=== PATIENT | female | born 1950 | race Caucasian/White ===

== ENCOUNTER 2016-10-22 02:53 | Emergency (ER) | payer MEDICARE, OTHER ==
[~2016-10-22] VITALS: Ht 152.4 cm; Wt 56.7 kg
[~2016-10-22 02:53] MED LIST: B/P MEDS
--- OUTSIDE RECORDS SUMMARY | 2016-10-22 03:01 | XMS REPORT | Continuity of Care Document ---
Author Author [facility] Organization [facility] Address Unknown Phone Unavailable Allergies Active Description Code Type Severity Reaction Onset Reported/Identified Relationship to Patient Clinical Status Yes No Known Drug Allergies [id number] Drug Allergy Unknown N/ A 06/21/2008 Medications Problems Date Dx Coded Attending Type Code Diagnosis Diagnosed By 04/09/2015 TERRI CALVILLO MD Ot 433.10 04/09/2015 RAJINDER ROJAS, TERRI Castillo Ot 440.9 04/09/2015 RAJINDER ROJAS, TERRI Castillo Ot 433.10 04/09/2015 RAJINDER ROJAS, TERRI Castillo Ot 440.9 05/02/2015 RAJINDER ROJAS, TERRI Castillo Ot 433.10 05/02/2015 RAJINDER ROJAS, TERRI Castillo Ot 440.9 05/05/2015 RAJINDER ROJAS, TERRI Castillo Ot V76.12 05/05/2015 RAJINDER ROJAS, TERRI Castillo Ot 433.10 05/05/2015 RAJINDER ROJAS, TERRI Castillo Ot 440.9 05/05/2015 RAJINDER ROJAS, TERRI Castillo Ot 433.10 05/05/2015 RAJINDER ROJAS, TERRI Castillo Ot 440.9 05/15/2015 RAJINDER ROJAS, TERRI Castillo Ot 433.10 05/15/2015 RAJINDER ROJAS, TERRI Castillo Ot 440.9 05/27/2015 RAJINDER ROJAS, TERRI Castillo Ot V76.12 Procedures Results Encounters ACCT No. Visit Date/Time Discharge Status Pt. Type Provider Facility Loc./Unit Complaint [id number] 05/05/2015 10:20:00 2014 23:59:59 CLS Outpatient TERRI CALVILLO MD [facility] RAD [id number] 04/07/2015 09:06:00 2014 23:59:59 CLS Outpatient TERRI CALVILLO MD [facility] RAD [id number] 04/29/2014 10:26:00 2013 23:59:59 CLS Outpatient TERRI CALVILLO MD [facility] RAD [id number] 04/01/2014 13:16:00 2013 23:59:59 CLS Outpatient [id number] 02/12/2013 14:28:00 2012 23:59:59 CLS Outpatient
[2016-10-22] MEDS ORDERED: ATOR10TA66 PO (03:44)
[2016-10-22] MEDS ORDERED: LOSA1TAB70 PO (03:44)
[2016-10-22] MEDS ORDERED: ASPI-586 PO (03:44)
[2016-10-22] MEDS ORDERED: methylPREDNISolone 125 MG (Solu-MEDROL) VIAL IM ONE (04:15)
[2016-10-22] MEDS ORDERED: diphenhydrAMINE 50 MG/ML INJ (BENADRYL) IM ONE (04:15)
[2016-10-22] MEDS ORDERED: HYDR-700 PO (04:27)
[2016-10-22] MEDS ORDERED: METH4TAB PO (04:27)
[2016-10-22] MEDS ORDERED: MOME15CR17 TP (04:27)
--- NOTE | 2016-10-22 04:27 | ED Integumentary General ---
General Chief Complaint: Allergic Reaction Stated Complaint: ALLERGIC RXN,FEVER Nursing Triage Note: RASH TO BILATERAL HANDS/ARMS X1 WEEK, SEEN BY PCP 10/21/16 FOR SAME RECIEVED "SHOT" WITHOUT IMPROVEMENT. Source: patient, spouse History of Present Illness Time seen by provider: 03:50 Initial Comments PT C/O ITCHY RASH TO DORSUM OF BOTH HANDS AND FOREARMS SINCE Tuesday10/18/16 NO NEW PRODUCTS, MEDICATIONS OR KNOWN EXPOSURES NO HISTORY OF SIMILAR SAW DR. CALVILLO YESTERDAY AND GOT A "SHOT", BUT STATES SHE IS NOT ANY BETTER NO SWELLING ANYWHERE NO DIFFICULTY BREATHING TONIGHT SHE DID OATMEAL SOAKS AND THAT HELPED ALOT PCP: DR. CALVILLO Allergies and Home Medications Allergies Coded Allergies: No Known Drug Allergies (Verified Allergy, Unknown, 06/21/08) Home Medications (Reported) Aspirin 81 Mg Tablet.dr 81 MG PO UD (Reported) Atorvastatin Calcium 10 Mg Tablet #30 1 TAB PO UD (Reported) Hydroxyzine HCl 25 Mg Tablet #20 25-50 MG PO Q6H Prescribed by: CHANA WILLAMS on 10/22/16426 Losartan/Hydrochlorothiazide 1 Each Tablet #90 1 TAB PO UD (Reported) Methylprednisolone 4 Mg Tab.ds.pk #1 4 MG PO UD Prescribed by: CHANA WILLAMS on 10/22/16426 Mometasone Furoate 15 Gm Cream..g. #1 0 TP TID Prescribed by: CHANA WILLAMS on 10/22/16426 Constitutional: no symptoms reported EENTM: no symptoms reported Respiratory: no symptoms reported Cardiovascular: no symptoms reported Gastrointestinal: no symptoms reported Genitourinary: no symptoms reported Musculoskeletal: no symptoms reported Skin: see HPI Psychiatric/Neurological: Anxiety Endocrine: No Symptoms Reported Hematologic/Lymphatic: No Symptoms Reported Past Ieaoghi-Spopmx-Vtlnmv Hx Patient Social History Alcohol Use: Denies Use Recreational Drug Use: No Smoking Status: Never a Smoker 2nd Hand Smoke Exposure: No Recent Foreign Travel: No Contact w/Someone Who Travel: No Recent Infectious Disease Expo: No Recent Hopitalizations: No Immunizations Up To Date Tetanus Booster (TDap): Unknown Seasonal Allergies Seasonal Allergies: No Surgeries HX Surgeries: Yes Surgeries: Appendectomy, Section Respiratory Hx Respiratory Disorders: No Cardiovascular Hx Cardiac Disorders: Yes Cardiac Disorders: High Cholesterol, Hypertension Neurological Hx Neurological Disorders: No Reproductive System : No 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 Genitourinary Hx Genitourinary Disorders: No Gastrointestinal Hx Gastrointestinal Disorders: No Musculoskeletal Hx Musculoskeletal Disorders: No Endocrine Hx Endocrine Disorders: No HEENT HX ENT Disorders: No Cancer Hx Cancer: No Psychosocial Hx Psychiatric Problems: No Integumentary HX Skin/Integumentary Disorder: No Blood Transfusions Hx Blood Disorders: No Physical Exam Vital Signs Vital Sign - Last 12Hours 10/22/16 03:44 Temp 98.7 Pulse 89 Resp 18 B/P 171/114 Pulse Ox 97 O2 Delivery Room Air Capillary Refill : Less Than 3 Seconds General Appearance: WD/WN no apparent distress other (PT VERY ANXIOUS) Cardiovascular: regular rate, rhythm Respiratory: normal breath sounds no respiratory distress no accessory muscle use Extremities: normal capillary refillNo swelling 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 ) Progress/Results/Core Measures Results/Orders My Orders Orders-CHANA WILLAMS DO Methylprednisolone Sod Succ (Solu-Medrol (10/22/16 04:15) Diphenhydramine Injection (Benadryl Inje (10/22/16 04:15) Vital Signs/I&O Vital Sign - Last 12Hours 10/22/16 10/22/16 03:44 04:48 Temp 98.7 98.7 Pulse 89 89 Resp 18 18 B/P 171/114 Pulse Ox 97 97 O2 Delivery Room Air Blood Pressure Mean: 133 Departure Impression Impression: Primary Impression: Contact dermatitis Disposition: 01 HOME, SELF-CARE Condition: Stable Departure-Patient Inst. Referrals: TERRI CALVILLO MD (PCP/Family) Primary Care Physician Patient Instructions: Contact Dermatitis (DC) Add. Discharge Instructions: LOTS OF CLEAR LIQUIDS FOLLOW UP WITH DR. CALVILLO ON TUESDAY IF NO BETTER All discharge instructions reviewed with patient and/or family. Voiced understanding. Scripts Mometasone Furoate (Elocon)15 Gm Cream..g. Tp Tid #1 Tube Prov:CHANA WILLAMS DO 10/22/16 Hydroxyzine HCl 25 Mg [id number] Mg PO Q6H Itching #20 TAB Prov:CHANA WILLAMS DO 10/22/16 Methylprednisolone (Medrol)4 Mg Tab.ds.pk4 Mg PO UD #1 PKG Prov:CHANA WILLAMS DO 10/22/16 CHANA WILLAMS DO Oct 22, 2016 04:27
[2016-10-22 04:48] VITALS: BP 171/114
== END 2016-10-22 04:46 | disposition home or self-care (01) ==
LOC: EDUNIT# 02:53 → ER 02:56
DX: L25.9 Unspecified contact dermatitis, unspecified cause (principal); I11.0 Hypertensive heart disease with heart failure; Z79.82 Long term (current) use of aspirin; Z79.899 Other long term (current) drug therapy
CPT/HCPCS: 96372; 99285

== ENCOUNTER → 2016-11-02 | Outpatient (CLI) | payer MEDICARE, OTHER ==
[~2016-11-02] MED LIST changes: +ASPI-586 PO; +ATOR10TA66 PO; +HYDR-700 PO; +LOSA1TAB70 PO; +METH4TAB PO; +MOME15CR17 TP
--- OUTSIDE RECORDS SUMMARY | 2016-11-02 16:10 | XMS REPORT | Continuity of Care Document ---
Author Author [facility] Organization [facility] Address Unknown Phone Unavailable Allergies Active Description Code Type Severity Reaction Onset Reported/Identified Relationship to Patient Clinical Status Yes No Known Drug Allergies [id number] Drug Allergy Unknown N/ A 06/21/2008 Medications Problems Date Dx Coded Attending Type Code Diagnosis Diagnosed By 04/09/2015 TERRI CALVILLO MD Ot 433.10 04/09/2015 RAJINDER ROJAS, TERRI Castillo Ot 440.9 04/09/2015 RAJINDER ROJAS, ETRRI Castillo Ot 433.10 04/09/2015 RAJINDER ROJAS, TERRI [...] 05/27/2015 RAJINDER ROJAS, TERRI Castillo Ot V76.12 10/22/2016 TERRI CALVILLO MD Ot V76.12 OT SCREEN MAMMO-MALIGN NEOPLASM OF [place] 10/22/2016 TERRI CALVILLO MD Ot 433.10 CAROTID ARTERY OCCLUSION W O CEREBRAL IN 10/22/2016 TERRI CALVILLO MD Ot 440.9 ATHEROSCLEROSIS NOS 10/22/2016 TERRI CALVILLO MD Ot V76.12 OTH SCREEN MAMMO-MALIGN NEOPLASM OF [place] 10/25/2016 VIKY WILLAMS DOA K Ot I11.0 HYPERTENSIVE HEART DISEASE WITH HEART FA 10/25/2016 IMER GREEN CHANA K Ot L25.9 UNSPECIFIED CONTACT DERMATITIS, UNSPECIF 10/25/2016 VIKY WILLAMS DOA K Ot R21 RASH AND OTHER NONSPECIFIC SKIN ERUPTION 10/25/2016 CHANA WILLAMS DO Ot Z79.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 Visit Date/Time Discharge Status Pt. Type Provider Facility Loc./Unit Complaint [id number] 10/22/2016 02:56:00 2016 04:46:00 DIS Outpatient CHANA WILLAMS DO [facility] ER ALLERGIC RXN,FEVER [id number] 05/05/2015 10:20:00 2014 23:59:59 CLS Outpatient TERRI CALVILLO MD [facility] RAD SCREENING [id number] 04/07/2015 09:06:00 2014 23:59:59 CLS Outpatient TERRI CALVILLO MD [facility] RAD CAROTID EXCLUSIVE DISEASE [id number] 04/29/2014 10:26:00 2013 23:59:59 CLS Outpatient TERRI CALVILLO MD [facility] RAD SCREENING [id number] 04/01/2014 13:16:00 2013 23:59:59 CLS Outpatient [id number] 02/12/2013 14:28:00 2012 23:59:59 CLS Outpatient
--- NOTE | 2016-11-04 08:11 | Diagnostic Imaging Report ---
Bilateral screening mammogram The current study was also evaluated with a Computer Aided Detection (CAD) system. Indication: Screening. No current complaints stated on the questionnaire. COMPARISON: 05/05/15 FINDINGS: The breasts are composed of heterogeneously dense parenchyma which may decrease mammographic sensitivity. There is a 1 cm asymmetry seen in the central aspect of the left MLO view which was questionably present on prior exams but appears more prominent and may relate to summation artifact of parenchyma. The right breast demonstrate no definite change. IMPRESSION: 1 cm asymmetry along the central aspect of the left MLO view is seen, questionably present but less prominent on the prior exams. This still may relate to a summation artifact of parenchyma. Focal compression views and ultrasound evaluation is recommended. BI-RADS 0. ACR BI-RADS Category 0: Incomplete. (Needs additional imaging evaluation). Result letter will be mailed to the patient. Note: At least 10% of breast cancer is not imaged by mammography. Dictated by: Dictated on workstation # [id number]
== END ==
LOC: RAD 15:15
PROVIDERS: ATTEND Internal Medicine
DX: Z12.31 Encounter for screening mammogram for malignant neoplasm of breast (principal)
CPT/HCPCS: 77067

== ENCOUNTER → 2016-11-10 | Outpatient (CLI) | payer MEDICARE, OTHER ==
--- OUTSIDE RECORDS SUMMARY | 2016-11-10 07:33 | XMS REPORT | Continuity of Care Document ---
Author Author [facility] Organization [facility] Address Unknown Phone Unavailable Allergies Active Description Code Type Severity Reaction Onset Reported/Identified Relationship to Patient Clinical Status Yes No Known Drug Allergies [id number] Drug Allergy Unknown N/ A 06/21/2008 Medications [...] Ot V76.12 OT SCREEN MAMMO-MALIGN NEOPLASM OF [place] 10/22/2016 TERRI CALVILLO MD Ot 433.10 CAROTID ARTERY OCCLUSION W O CEREBRAL IN 10/22/2016 TERRI CALVILLO MD Ot 440.9 ATHEROSCLEROSIS NOS 10/22/2016 TERRI CALVILLO MD Ot V76.12 OT SCREEN MAMMO-MALIGN NEOPLASM OF [place] 10/22/2016 VIKY WILLAMS DOA Maryann Ot I11.0 HYPERTENSIVE HEART DISEASE WITH HEART FA 10/22/2016 VIKY WILLAMS DOA K Ot L25.9 UNSPECIFIED CONTACT DERMATITIS, UNSPECIF 10/22/2016 VIKY WILLAMS DOA K Ot R21 RASH AND OTHER NONSPECIFIC SKIN ERUPTION 10/22/2016 IMER GREEN CHANA K Ot Z79.82 SHELTER (CURRENT) USE OF ASPIRIN 10/22/2016 IMER DO CHANA K Ot 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 10/25/2016 IMER DO, CHANA K Ot I11.0 HYPERTENSIVE HEART DISEASE WITH HEART FA 10/25/2016 IMER DO CHANA K Ot L25.9 UNSPECIFIED CONTACT DERMATITIS, UNSPECIF 10/25/2016 IMER DO CHANA K Ot R21 RASH AND OTHER NONSPECIFIC SKIN ERUPTION 10/25/2016 IMER DO CHANA K Ot Z79.82 SHELTER (CURRENT) USE OF ASPIRIN 10/25/2016 IMER DO, CHANA K Ot Z79.899 OTHER SHELTER (CURRENT) DRUG THERAPY 10/28/2016 IMER DO CHANA K Ot I11.0 HYPERTENSIVE HEART DISEASE WITH HEART FA 10/28/2016 IMER DO CHANA K Ot L25.9 UNSPECIFIED CONTACT DERMATITIS, UNSPECIF 10/28/2016 IMER DO CHANA K Ot R21 RASH AND OTHER NONSPECIFIC SKIN ERUPTION 10/28/2016 IMER DO CHANA K Ot Z79.82 SHELTER (CURRENT) USE OF ASPIRIN 10/28/2016 IMER DO CHANA K Ot Z79.899 OTHER SHELTER (CURRENT) DRUG THERAPY 11/02/2016 TERRI CALVILLO MD Ot 414.01 CORONARY ATHEROSCLEROSIS OF [place] CORON 11/02/2016 TERRI CALVILLO MD Ot 433.10 CAROTID ARTERY OCCLUSION W O CEREBRAL IN 11/02/2016 TERRI CALVILLO MD Ot 433.30 MULT BILTRAL ARTERY OCCLUSION WO CEREBRA 11/02/2016 TERRI CALVILLO MD Ot V76.12 OTH SCREEN MAMMO-MALIGN NEOPLASM OF [place] 11/02/2016 TERRI CALVILLO MD Ot 433.10 CAROTID ARTERY OCCLUSION W O CEREBRAL IN 11/02/2016 TERRI CALVILLO MD Ot 440.9 ATHEROSCLEROSIS NOS 11/02/2016 TERRI CALVILLO MD Ot V76.12 OTH SCREEN MAMMO-MALIGN NEOPLASM OF [place] 11/03/2016 TERRI CALVILLO MD Ot Z12.31 ENCNTR SCREEN MAMMOGRAM FOR MALIGNANT NE Procedures Results Encounters ACCT No. Visit Date/Time Discharge Status Pt. Type Provider Facility Loc./Unit Complaint [id number] 10/22/2016 02:56:00 2016 04:46:00 DIS Emergency IMER CHANA GREEN [facility] ER ALLERGIC RXN,FEVER [id number] 05/05/2015 10:20:00 2014 23:59:59 CLS Outpatient TERRI CALVILLO MD [facility] RAD SCREENING [id number] 04/07/2015 09:06:00 2014 23:59:59 CLS Outpatient TERRI CALVILLO MD [facility] RAD CAROTID EXCLUSIVE DISEASE [id number] 04/29/2014 10:26:00 2013 23:59:59 CLS Outpatient TERRI CALVILLO MD [facility] RAD SCREENING [id number] 04/01/2014 13:16:00 2013 23:59:59 CLS Outpatient TERRI CALVILLO MD [facility] RAD CAROTID ARTERY DISEASE [id number] 02/12/2013 14:28:00 2012 23:59:59 CLS Outpatient [id number] 11/10/2016 07:29:00 ACT Outpatient KAIDEN EAST APRN [facility] RAD ABNORMAL MAMMO [id number] 11/02/2016 15:15:00 ACT Outpatient TERRI CALVILLO MD [facility] RAD SCREENING
--- NOTE | 2016-11-10 20:06 | Diagnostic Imaging Report ---
INDICATION: Abnormal mammogram. EXAMINATION: Ultrasound of the left breast. FINDINGS: The screening mammogram performed on 11/02/16 noted a 1 cm asymmetry along the central aspect of the left breast. This was only seen on the MLO view. The diagnostic mammogram performed earlier today failed to show any sign of malignancy in this area. On this study, there is no discrete solid or cystic mass identified. There was a single ectatic duct visualized. I suspect that the density seen on the screening mammogram was secondary to superimposition of the heterogeneously dense fibroglandular tissue in the left breast. Even so, it may prove worthwhile to have a short-term (six month) followup mammogram of the left breast for continued evaluation. IMPRESSION: There is no evidence for malignancy. Recommendations as above. ACR BI-RADS Category 3: Probably benign. Result letter will be mailed to the patient. Note: At least 10% of breast cancer is not imaged by mammography. Dictated by: Dictated on workstation # [id number]
--- NOTE | 2016-11-10 20:26 | Diagnostic Imaging Report ---
INDICATION: Abnormal screening mammogram. EXAMINATION: Unilateral diagnostic left mammogram. The current study was also evaluated with a Computer Aided Detection (CAD) system. FINDINGS: The recent screening mammogram performed on 11/02/16 noted a 1 cm asymmetry along the central aspect of the left breast on the MLO view. There was no corresponding abnormality seen on the craniocaudad view. Compression views of this area in the MLO projection fail to show any discrete abnormality. The density in question cannot be identified on the true lateral view either. I suspect that the finding of the screening mammogram was related to superimposition of the heterogeneously dense fibroglandular tissue. Even so, I would recommend that ultrasound be performed for further study. IMPRESSION: There is no evidence for malignancy. Recommendations as above. ACR BI-RADS Category 0: Incomplete. (Needs additional imaging evaluation). Result letter will be mailed to the patient. Note: At least 10% of breast cancer is not imaged by mammography. Dictated by: Dictated on workstation # [id number]
== END ==
LOC: RAD 07:29
PROVIDERS: ATTEND Nurse Practitioner
DX: R92.8 Other abnormal and inconclusive findings on diagnostic imaging of breast (principal)
CPT/HCPCS: 76641

== ENCOUNTER → 2017-05-25 | Outpatient (CLI) | payer MEDICARE, OTHER ==
[~2017-05-25] MED LIST changes: +LOSA1TAB23 PO; -LOSA1TAB70 PO
--- NOTE | 2017-05-25 19:03 | Diagnostic Imaging Report ---
Left breast diagnostic mammogram with tomography. The current study was also evaluated with a Computer Aided Detection (CAD) system. COMPARISON: 11/10/2016. INDICATION: Asymmetry along the central aspect of the left MLO view. FINDINGS: Again seen asymmetry in the central aspect of the left MLO view. It is less prominent compared to the prior exam and is likely summation artifact of parenchyma. Benign-appearing calcification seen. IMPRESSION: Previously seen asymmetry in the central aspect of the left MLO view is less prominent and is favored to be summation artifact of parenchyma. Mammogram follow-up when the patient is due for her bilateral exam in six months is recommended. ACR BI-RADS Category 3: Probably benign findings. Result letter will be mailed to the patient. Note: At least 10% of breast cancer is not imaged by mammography. Dictated by: Dictated on workstation # [id number]
== END ==
LOC: RAD 07:29
PROVIDERS: ATTEND Internal Medicine
DX: N64.89 Other specified disorders of breast (principal)

== ENCOUNTER → 2017-11-16 | Outpatient (CLI) | payer MEDICARE, OTHER ==
--- NOTE | 2017-11-16 19:30 | Diagnostic Imaging Report ---
EXAMINATION: Digital mammogram bilateral diagnostic. INDICATION: Followup mammogram. COMPARISON: This study was compared to the prior exams of 05/25/2017, 11/02/2016, 05/05/2015, 04/29/2014, and 02/12/2013. At this time, there are no current complaints. The current study was also evaluated with a Computer Aided Detection (CAD) system. FINDINGS: The fibroglandular tissue in both breasts is heterogeneously dense. This does limit the sensitivity of this exam. The previous exam of 11/02/2016 noted a 1 cm asymmetry along the central aspect of the left breast. The subsequent diagnostic mammogram and ultrasound exam of 11/10/2016 failed to show any evidence for malignancy in this area. This finding also seems stable on this followup mammogram of 05/25/2017. On this exam, the area in question is again evident and no different. I do suspect it is related to fibroglandular tissue alone. The overall appearance of the breasts has not changed significantly otherwise. There is no primary or secondary sign of malignancy noted. IMPRESSION: 1. There is no evidence for malignancy. 2. The patient should have her annual bilateral screening mammogram in November of 2018 for continued evaluation. ACR BI-RADS Category 1: Negative. Result letter will be mailed to the patient. Note: At least 10% of breast cancer is not imaged by mammography. Dictated by: Dictated on workstation # [id number]
== END ==
LOC: RAD 13:39
PROVIDERS: ATTEND Nurse Practitioner
DX: R92.8 Other abnormal and inconclusive findings on diagnostic imaging of breast (principal)
CPT/HCPCS: 77066

== ENCOUNTER 2018-07-24 23:32 | Emergency (ER) | payer MEDICARE, OTHER ==
[~2018-07-24] VITALS: Ht 152.4 cm; Wt 56.7 kg
--- OUTSIDE RECORDS SUMMARY | 2018-07-24 23:38 | XMS REPORT | Continuity of Care Document ---
Author Author [facility] Organization [facility] Address Unknown Phone Unavailable Allergies Active Description Code Type Severity Reaction Onset Reported/Identified Relationship to Patient Clinical Status Yes No Known Drug Allergies [id number] Drug Allergy Unknown N/A 06/21/2008 Medications There is no data. Problems Date Dx Coded Attending Type Code Diagnosis Diagnosed By 04/09/2015 TERRI CALVILLO MD Ot 433.10 04/09/2015 TERRI CALVILLO MD Ot 440.9 04/09/2015 TERRI CALVILLO MD Ot 433.10 04/09/2015 RAJINDER ROJAS, TERRI Castillo Ot 440.9 05/02/2015 TERRI CALVILLO MD Ot 433.10 05/02/2015 TERRI CALVILLO MD Ot 440.9 05/05/2015 TERRI CALVILLO MD Ot V76.12 05/05/2015 RAJINDER ROJAS, TERRI Castillo Ot 433.10 05/05/2015 RAJINDER ROJAS, TERRI Castillo Ot 440.9 05/05/2015 RAJINDER ROJAS, TERRI Castillo Ot 433.10 05/05/2015 RAJINDER ROJAS, TERRI Castillo Ot 440.9 05/15/2015 TERRI CALVILLO MD Ot 433.10 05/15/2015 RAJINDER ROJAS, TERRI Castillo Ot 440.9 05/27/2015 TERRI CALVILLO MD Ot V76.12 10/22/2016 TERRI CALVILLO MD Ot V76.12 OTH SCREEN MAMMO-MALIGN NEOPLASM OF [place] 10/22/2016 TERRI CALVILLO MD Ot 433.10 CAROTID ARTERY OCCLUSION W O CEREBRAL IN 10/22/2016 TERRI CALVILLO MD Ot 440.9 ATHEROSCLEROSIS NOS 10/22/2016 TERRI CALVILLO MD Ot V76.12 OTH SCREEN MAMMO-MALIGN NEOPLASM OF [place] 10/22/2016 CHANA WILLAMS DO Ot I11.0 HYPERTENSIVE HEART DISEASE WITH HEART FA 10/22/2016 CHANA WILLAMS DO Ot L25.9 UNSPECIFIED CONTACT DERMATITIS, UNSPECIF 10/22/2016 CHANA WILLAMS DO Ot R21 RASH AND OTHER NONSPECIFIC SKIN ERUPTION 10/22/2016 IMER DO CHANA K Ot Z79.82 BANKRUPTCY PARALEGAL (CURRENT) USE OF ASPIRIN 10/22/2016 IMER DO CHANA K Ot Z79.899 OTHER PENITENTIARY (CURRENT) DRUG THERAPY 10/25/2016 IMER DO, CHANA K Ot I11.0 HYPERTENSIVE HEART DISEASE WITH HEART FA 10/25/2016 IMER DO CHANA K Ot L25.9 UNSPECIFIED CONTACT DERMATITIS, UNSPECIF 10/25/2016 IMER DO, CHANA K Ot R21 RASH AND OTHER NONSPECIFIC SKIN ERUPTION 10/25/2016 IMER DO CHANA K Ot Z79.82 BANKRUPTCY PARALEGAL (CURRENT) USE OF ASPIRIN 10/25/2016 IMER DO, CHANA K Ot Z79.899 OTHER PENITENTIARY (CURRENT) DRUG THERAPY 10/28/2016 IMER DO, CHANA K Ot I11.0 HYPERTENSIVE HEART DISEASE WITH HEART FA 10/28/2016 IMER DO CHANA K Ot L25.9 UNSPECIFIED CONTACT DERMATITIS, UNSPECIF 10/28/2016 IMER DO, CHANA K Ot R21 RASH AND OTHER NONSPECIFIC SKIN ERUPTION 10/28/2016 IMER DO CHANA K Ot Z79.82 BANKRUPTCY PARALEGAL (CURRENT) USE OF ASPIRIN 10/28/2016 IMER DO CHANA K Ot Z79.899 OTHER BANKRUPTCY PARALEGAL (CURRENT) DRUG THERAPY 11/02/2016 TERRI CALIVLLO MD Ot 414.01 CORONARY ATHEROSCLEROSIS OF [place] CORON 11/02/2016 TERRI CALVILLO MD Ot 433.10 [...] Z12.31 ENCNTR SCREEN MAMMOGRAM FOR MALIGNANT NE 11/11/2016 KAIDEN EAST APRN Ot R92.8 OTH ABN AND INCONCLUSIVE FINDINGS ON DX 11/23/2016 TERRI CALVILLO MD Ot Z12.31 ENCNTR SCREEN MAMMOGRAM FOR MALIGNANT NE 12/01/2016 CRUZITOPROSPERN George CERTIFIED CYTOTECHNOLOGIST Ot R92.8 OTH ABN AND INCONCLUSIVE FINDINGS ON DX 02/23/2017 CRUZITOPROSPERN George CERTIFIED CYTOTECHNOLOGIST Ot R92.8 OTH ABN AND INCONCLUSIVE FINDINGS ON DX 05/24/2017 TERRI CALVILLO MD Ot R92.8 OTH ABN AND INCONCLUSIVE FINDINGS ON DX 05/25/2017 TERRI CALVILLO MD Ot R92.8 OTH ABN AND INCONCLUSIVE FINDINGS ON DX 05/31/2017 TERRI CALVILLO MD Ot N64.89 OTHER SPECIFIED DISORDERS OF BREAST 06/16/2017 TERRI CALVILLO MD Ot N64.89 OTHER SPECIFIED DISORDERS OF BREAST 07/19/2017 TERRI CALVILLO MD Ot N64.89 OTHER SPECIFIED DISORDERS OF BREAST 11/16/2017 PROSPER EASTN R CERTIFIED CYTOTECHNOLOGIST Ot R92.8 OTH ABN AND INCONCLUSIVE FINDINGS ON DX 11/17/2017 PROSPER EASTN George CERTIFIED CYTOTECHNOLOGIST Ot R92.8 OTH ABN AND INCONCLUSIVE FINDINGS ON DX 12/06/2017 KAIDEN EAST CERTIFIED CYTOTECHNOLOGIST Ot R92.8 OTH ABN AND INCONCLUSIVE FINDINGS ON DX 12/26/2017 KAIDEN EAST CERTIFIED CYTOTECHNOLOGIST Ot R92.8 OTH ABN AND INCONCLUSIVE FINDINGS ON DX Procedures There is no data. Results There is no data. Encounters ACCT No. Visit Date/Time Discharge Status Pt. Type Provider Facility Loc./Unit Complaint [id number] 11/16/2017 13:39:00 11/16/2017 23:59:59 CLS Outpatient KAIDEN EAST APRN [facility] RAD ABNORMAL MAMMO 6 MO FOLLOW UP [id number] 10/19/2017 15:06:00 10/19/2017 23:59:59 CLS Preadmit KAIDEN EAST APRN [facility] RAD SCREENING [id number] 05/25/2017 07:29:00 05/25/2017 23:59:59 CLS Outpatient TERRI CALVILLO MD [facility] RAD 6MO F/U LT BREAST [id number] 11/10/2016 07:29:00 11/10/2016 23:59:59 CLS Outpatient KAIDEN EAST APRN [facility] RAD ABNORMAL MAMMO [id number] 11/02/2016 15:15:00 11/02/2016 23:59:59 CLS Outpatient TERRI CALVILLO MD [facility] RAD SCREENING [id number] 10/22/2016 02:56:00 10/22/2016 04:46:00 DIS Emergency CHANA WILLAMS DO [facility] ER ALLERGIC RXN,FEVER [id number] 05/05/2015 10:20:00 05/05/2015 23:59:59 CLS Outpatient TERRI CALVILLO MD [facility] RAD SCREENING [id number] 04/07/2015 09:06:00 04/07/2015 23:59:59 CLS Outpatient TERRI CALVILLO MD [facility] RAD CAROTID EXCLUSIVE DISEASE [id number] 04/29/2014 10:26:00 04/29/2014 23:59:59 CLS Outpatient TERRI CALVILLO MD [facility] RAD SCREENING [id number] 04/01/2014 13:16:00 04/01/2014 23:59:59 CLS Outpatient TERRI CALVILLO MD [facility] RAD CAROTID ARTERY DISEASE [id number] 02/12/2013 14:28:00 02/12/2013 23:59:59 CLS Outpatient
[2018-07-25] MEDS ORDERED: FAMOTIDINE 20 MG (PEPCID) TABLET PO STA (00:58)
[2018-07-25] MEDS ORDERED: NS IV 1000 ML 1,000 ML IV STA (00:58)
[2018-07-25] MEDS ORDERED: ANTACID SUSP 30 ML UDC (MYLANTA) PO ONE (01:00)
[2018-07-25] MEDS ORDERED: LIDOCAINE 2% VISCOUS 15 ML UDC PO ONE (01:00)
[2018-07-25] MEDS ORDERED: ONDANSETRON 4 MG/2 ML (SDV) Z0FRAN IVP ONE (01:00)
[2018-07-25 01:05] LABS: BASOPHILS % (AUTO) 0 % (0-10); EOSINOPHILS # (AUTO) 0.1 10^3/uL (0.0-0.3); EOSINOPHILS % (AUTO) 2 % (0-10); HEMATOCRIT 39 % (35-52); HEMOGLOBIN 13.1 G/DL (11.5-16.0); LYMPHOCYTES # (AUTO) 1.4 X 10^3 (1.0-4.0); LYMPHOCYTES % (AUTO) 27 % (12-44); MEAN CORPUSCULAR HEMOGLOBIN 30 PG (25-34); MEAN CORPUSCULAR HGB CONC 33 G/DL (32-36); MEAN CORPUSCULAR VOLUME 90 FL (80-99); MEAN PLATELET VOLUME 11.3 FL (7.4-10.4); MONOCYTES # (AUTO) 0.6 X 10^3 (0.0-1.0); MONOCYTES % (AUTO) 11 % (0-12); NEUTROPHILS # (AUTO) 3.2 X 10^3 (1.8-7.8); NEUTROPHILS % (AUTO) 60 % (42-75); PLATELET COUNT 228 10^3/uL (130-400); RED BLOOD COUNT 4.39 10^6/uL (4.35-5.85); RED CELL DISTRIBUTION WIDTH 13.3 % (10.0-14.5); WHITE BLOOD COUNT 5.3 10^3/uL (4.3-11.0)
--- NOTE | 2018-07-25 01:06 | ED Abdominal Pain ---
General Chief Complaint: Abdominal/GI Problems Stated Complaint: ABD PAIN,POSSIBLE ACID REFLUX Nursing Triage Note: PT STARTED AHVING MIDDLE UPPER ABD PAIN YESTERDAY AFTERNOON. PT STATED THAT IT HURTS TO EAT. PT IS ALERT AND ORIENTED AND AMBULATED TO ROOM 10. PT STATED THE PAST 2 DAYS SHE HAS NOT HAD REGUALR BOWEL MOVEMENTS. PT'S STATED HE GAVE HER A WARM ENEMA EARLIER AND DID NOT PRODUCE MUCH. Sepsis Screen: No Definite Risk Source of Information: Patient, Spouse Exam Limitations: No Limitations History of Present Illness Date Seen by Provider: Jul 25, 2018 Time Seen by Provider: 00:49 Initial Comments The patient presents to ER by private conveyance with chief complaint for the past day she's had progressively worsening abdominal pain the midepigastric region with some nausea without vomiting. She's had constipation which is unusual for her. She says usually she is regular every day. She took some Zantac as well as some Mylanta earlier in the day which helped some but the pain continued amount. She thought maybe his condition was constipated so she tried to have a bowel movement you some laxatives as well as a warm water enema with only minimal relief and minimal stool. She has had 2 C-sections and her appendix out in the past. She's had no trauma to her abdomen. She's having no fevers or chills. Allergies and Home Medications Allergies Coded Allergies: No Known Drug Allergies (Verified Allergy, Unknown, 06/21/08) Home Medications Aspirin 81 Mg Tablet.dr, 81 MG PO UD, (Reported) Atorvastatin Calcium 10 Mg Tablet, 1 TAB PO UD, (Reported) Hydroxyzine HCl 25 Mg Tablet, 25-50 MG PO Q6H Prescribed by: CHANA WILLAMS on 10/22/16426 Losartan/Hydrochlorothiazide 1 Each Tablet, 1 TAB PO UD, (Reported) Methylprednisolone 4 Mg Tab.ds.pk, 4 MG PO UD Prescribed by: CHANA WILLAMS on 10/22/16426 Mometasone Furoate 15 Gm Cream..g., 0 TP TID Prescribed by: CHANA WILLAMS on 10/22/16426 Patient Home Medication List Home Medication List Reviewed: Yes Review of Systems Review of Systems Constitutional: No chills, No fever, No malaise EENTM: No Blurred Vision, No Double Vision Respiratory: Denies Cough, Denies Shortness of Air Cardiovascular: Denies Chest Pain, Denies Edema Gastrointestinal: See HPI; Denies Abdomen Distended; Abdominal Pain, Constipated; Denies Diarrhea; Nausea; Denies Poor Appetite, Denies Poor Fluid Intake, Denies Vomiting Genitourinary: Denies Burning, Denies Discharge Musculoskeletal: No back pain, No joint pain Past Bazkzvv-Muzzbz-Kzyuao Hx Patient Social History Alcohol Use: Denies Use Recreational Drug Use: No Smoking Status: Never a Smoker 2nd Hand Smoke Exposure: No Recent Foreign Travel: No Contact w/Someone Who Travel: No Recent Infectious Disease Expo: No Recent Hopitalizations: No Physical Abuse: No Sexual Abuse: No Mistreated: No Fear: No Immunizations Up To Date Tetanus Booster (TDap): Unknown Seasonal Allergies Seasonal Allergies: No Past Medical History Surgeries: Yes (C-SECTIONS X2) Appendectomy, Section Respiratory: No Cardiac: Yes High Cholesterol, Hypertension Neurological: No 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 oz. 56.987814od; BMI Method:Stated General Appearance: WD/WN, mild distress HEENT: PERRL/EOMI, pharynx normal Neck: non-tender, full range of motion Respiratory: chest non-tender, lungs clear, normal breath sounds, no respiratory distress, no accessory muscle use Cardiovascular: normal peripheral pulses, regular rate, rhythm Peripheral Pulses: 2+ Radial Pulses (R), 2+ Radial Pulses (L) Gastrointestinal: normal bowel sounds, soft, tenderness (midepigastric without Santoro sign), other (no mesenteric signs) Neurologic/Psychiatric: alert, normal mood/affect, oriented x 3 Skin: normal color, warm/dry Progress/Results/Core Measures Results/Orders Lab Results Laboratory Tests Test 07/25/18 00:02 07/25/18 00:46 Range/Units White Blood Count 5.3 4.3-11.0 10^3/uL Red Blood Count 4.39 4.35-5.85 10^6/uL Hemoglobin 13.1 11.5-16.0 G/DL Hematocrit 39 35-52 % Mean Corpuscular Volume 90 80-99 FL Mean Corpuscular Hemoglobin 30 25-34 PG Mean Corpuscular Hemoglobin Concent 33 32-36 G/DL Red Cell Distribution Width 13.3 10.0-14.5 % Platelet Count 228 130-400 10^3/uL Mean Platelet Volume 11.3 H 7.4-10.4 FL Neutrophils (%) (Auto) 60 42-75 % Lymphocytes (%) (Auto) 27 12-44 % Monocytes (%) (Auto) 11 0-12 % Eosinophils (%) (Auto) 2 0-10 % Basophils (%) (Auto) 0 0-10 % Neutrophils # (Auto) 3.2 1.8-7.8 X 10^3 Lymphocytes # (Auto) 1.4 1.0-4.0 X 10^3 Monocytes # (Auto) 0.6 0.0-1.0 X 10^3 Eosinophils # (Auto) 0.1 0.0-0.3 10^3/uL Basophils # (Auto) 0.0 0.0-0.1 10^3/uL Sodium Level 137 135-145 MMOL/L Potassium Level 3.6 3.6-5.0 MMOL/L Chloride Level 98 98-107 MMOL/L Carbon Dioxide Level 28 21-32 MMOL/L Anion Gap 11 5-14 MMOL/L Blood Urea Nitrogen 21 H 7-18 MG/DL Creatinine 0.74 0.60-1.30 MG/DL Estimat Glomerular Filtration Rate > 60 BUN/Creatinine Ratio 28 Glucose Level 145 H 70-105 MG/DL Calcium Level 9.6 8.5-10.1 MG/DL Corrected Calcium 9.4 8.5-10.1 MG/DL Total Bilirubin 0.5 0.1-1.0 MG/DL Aspartate Amino Transf (AST/SGOT) 20 5-34 U/L Alanine Aminotransferase (ALT/SGPT) 17 0-55 U/L Alkaline Phosphatase 77 40-136 U/L Total Protein 7.4 6.4-8.2 GM/DL Albumin 4.2 3.2-4.5 GM/DL Lipase 28 8-78 U/L Urine Color YELLOW Urine Clarity CLEAR Urine pH 8 5-9 Urine Specific Og[place]by 1.015 L 1.016-1.022 Urine Protein NEGATIVE NEGATIVE Urine Glucose (UA) NEGATIVE NEGATIVE Urine Ketones NEGATIVE NEGATIVE Urine Nitrite NEGATIVE NEGATIVE Urine Bilirubin NEGATIVE NEGATIVE Urine Urobilinogen NORMAL NORMAL MG/DL Urine Leukocyte Esterase 1+ H NEGATIVE Urine RBC (Auto) NEGATIVE NEGATIVE Urine RBC NONE /HPF Urine WBC NONE /HPF Urine Squamous Epithelial Cells 0-2 /HPF Urine Crystals NONE /LPF Urine Bacteria NEGATIVE /HPF Urine Casts NONE /LPF Urine Mucus NEGATIVE /LPF Urine Culture Indicated NO My Orders Orders - NANDO ROBLERO Ct Abdomen/Pelvis W (07/25/18 00:58) Cbc With Automated Diff (07/25/18 00:58) Comprehensive Metabolic Panel (07/25/18 00:58) Lipase (07/25/18 00:58) Ua Culture If Indicated (07/25/18 00:58) Ondansetron Injection (Zofran Injectio (07/25/18 01:00) Lidocaine 2% Viscous 15 Ml (Xylocaine Vi (07/25/18 01:00) Famotidine Tablet (Pepcid Tablet) (07/25/18 00:58) Ns Iv 1000 Ml (Sodium Chloride 0.9%) (07/25/18 00:58) Antacid Suspension (Mylanta Suspension (07/25/18 01:00) Saline Lock/Iv-Start (07/25/18 00:58) Medications Given in ED Current Medications Medications Dose Ordered Sig/Rudy Route Start Time Stop Time Status Last Admin Dose Admin Al Hydrox/Mg Hydrox/Simethicone 30 ml ONCE ONCE PO 07/25/18 01:00 07/25/18 01:01 DC 07/25/18 01:09 30 ML Lidocaine HCl 15 ml ONCE ONCE PO 07/25/18 01:00 07/25/18 01:01 DC 07/25/18 01:09 15 ML Ondansetron HCl 4 mg ONCE ONCE IVP 07/25/18 01:00 07/25/18 01:01 DC 07/25/18 01:09 4 MG Vital Signs/I&O 07/25/18 00:22 Temp 97.7 Pulse 81 Resp 14 B/P (MAP) 171/90 (117) Pulse Ox 99 O2 Delivery Room Air Blood Pressure Mean: 117 Progress Progress Note #1: Time: 01:06 Progress Note This is a minimal relief with some Mylanta and Zantac syrup trial a GI cocktail see if that helps us locate her symptoms source. We'll get some labs, CT, IV fluids to flush out the contrast, urinalysis. Think about constipation/ obstipation versus bowel obstruction versus PUD versus gallbladder versus pancreatitis versus other. Progress Note #2: Time: 04:05 Progress Note Reexamination the GI cocktail did help her symptoms significantly. She says she feels hungry. Diagnostic Imaging Diagonstic Imaging: CT Plain Films/CT/US/NM/MRI: abdomen, pelvis (with contrast) Comments No acute intra-abdominal findings. Reviewed: Reviewed by Me Departure Impression Primary Impression: Gastritis Qualified Codes: K29.00 - Acute gastritis without bleeding Disposition: HOME, SELF-CARE Condition: Improved Departure-Patient Inst. Decision time for Depature: 04:11 Referrals: TERRI CALVILLO MD (PCP/Family) Primary Care Physician Patient Instructions: Gastritis (DC) Add. Discharge Instructions: Start taking the Carafate 4 times a day 30 minutes before meals and at bedtime for the next 2 weeks. Take omeprazole one tablet daily for the next 4 weeks. Follow-up with Dr. Calvillo in the next 1-2 weeks to discuss whether endoscopy could be useful. All discharge instructions reviewed with patient and/or family. Voiced understanding. Scripts Omeprazole (Omeprazole) 40 Mg Capsule. 40 MG PO DAILY for 30 Days, #30 CAP 0 Refills Prov: NANDO ROBLERO 07/25/18 Sucralfate (Carafate) 1 Gm Tablet 1 GM PO QIDACHS for 14 Days, #56 TAB 0 Refills Prov: NANDO ORBLERO 07/25/18 Copy Copies To 1: TERRI CALVILLO MD, TITUS J Jul 25, 2018 01:06
[2018-07-25 01:16] LABS: BILIRUBIN,URINE NEGATIVE (NEGATIVE); CLARITY,URINE CLEAR; COLOR,URINE YELLOW; GLUCOSE, URINE (UA) NEGATIVE (NEGATIVE); KETONES,URINE NEGATIVE (NEGATIVE); LEUKOCYTE ESTERASE ,URINE 1+ (NEGATIVE); NITRITE,URINE NEGATIVE (NEGATIVE); PH,URINE 8 (5-9); PROTEIN,URINE NEGATIVE (NEGATIVE); UROBILINOGEN,URINE NORMAL (NORMAL)
[2018-07-25 01:18] LABS: ALANINE AMINOTRANSFERASE 17 U/L (0-55); ALBUMIN 4.2 GM/DL (3.2-4.5); ALKALINE PHOSPHATASE 77 U/L (40-136); BILIRUBIN,TOTAL 0.5 MG/DL (0.1-1.0); BUN/CREATININE RATIO 28; CALCIUM 9.6 MG/DL (8.5-10.1); CARBON DIOXIDE 28 MMOL/L (21-32); CHLORIDE 98 MMOL/L (98-107); CREATININE SERUM 0.74 MG/DL (0.60-1.30); GFR ESTIMATED > 60; GLUCOSE 145 MG/DL (70-105); LIPASE 28 U/L (8-78); POTASSIUM 3.6 MMOL/L (3.6-5.0); SODIUM 137 MMOL/L (135-145); TOTAL PROTEIN 7.4 GM/DL (6.4-8.2)
[2018-07-25 01:29] LABS: BACTERIA,URINE NEGATIVE /HPF; SQUAMOUS EPITHELIAL CELL,UR 0-2 /HPF
[2018-07-25] MEDS ORDERED: OMEP40CA36 PO (04:13)
[2018-07-25] MEDS ORDERED: SUCR1TAB36 PO (04:13)
[2018-07-25 04:26] VITALS: BP 150/69
--- NOTE | 2018-07-25 06:19 | Diagnostic Imaging Report ---
PROCEDURE: CT abdomen and pelvis with contrast. TECHNIQUE: Multiple contiguous axial images were obtained through the abdomen and pelvis after administration of intravenous contrast. INDICATION: Abdominal pain. COMPARISON: None. FINDINGS: Lung bases are clear. The liver, gallbladder, pancreas, spleen, adrenals, kidneys, collecting systems and bladder are unremarkable. Reproductive structures are unremarkable. No evidence of appendicitis. No free intraperitoneal air or fluid. No lymphadenopathy. No evidence of bowel obstruction. Moderate spondylotic changes in the lumbar spine. No acute osseous findings. IMPRESSION: No acute CT findings in the abdomen or pelvis. Dictated by: Dictated on workstation # [id number]
== END 2018-07-25 04:26 | disposition home or self-care (01) ==
LOC: EDUNIT# 23:32 → ER 23:33
DX: K29.70 Gastritis, unspecified, without bleeding (principal); E78.00 Pure hypercholesterolemia, unspecified; I10 Essential (primary) hypertension; Z98.890 Other specified postprocedural states; Z79.82 Long term (current) use of aspirin; Z79.52 Long term (current) use of systemic steroids; Z90.49 Acquired absence of other specified parts of digestive tract
CPT/HCPCS: 36415; 74177; 80053; 81000; 83690; 85025

== ENCOUNTER → 2018-11-17 | Outpatient (CLI) | payer MEDICARE, OTHER ==
[~2018-11-17] MED LIST changes: +OMEP40CA36 PO; +SUCR1TAB36 PO
--- NOTE | 2018-11-17 19:26 | Diagnostic Imaging Report ---
INDICATION: Routine screening. COMPARISON: Prior mammogram from 11/16/2017 and 11/02/2016. EXAMINATION: 2D and 3D bilateral screening mammography was performed with CAD. The current study was also evaluated with a Computer Aided Detection (CAD) system. FINDINGS: Scattered fibroglandular densities are identified, bilaterally. The parenchymal pattern appears stable. No dominant mass or malignant appearing microcalcifications are seen. There are benign calcifications present. The axillae are unremarkable. IMPRESSION: No mammographic features suspicious for malignancy are identified. ACR BI-RADS Category 2: Benign findings. Result letter will be mailed to the patient. Note: At least 10% of breast cancer is not imaged by mammography. Dictated by: Dictated on workstation # [id number]
== END ==
LOC: RAD 09:23
PROVIDERS: ATTEND Nurse Practitioner
DX: Z12.31 Encounter for screening mammogram for malignant neoplasm of breast (principal)
CPT/HCPCS: 77067

== ENCOUNTER 2019-01-22 11:49 | Emergency (ER) | payer MEDICARE, OTHER ==
[~2019-01-22] VITALS: Ht 152.4 cm; Wt 54.4 kg
[2019-01-22 12:22] LABS: BASOPHILS % (AUTO) 0 % (0-10); EOSINOPHILS # (AUTO) 0.1 10^3/uL (0.0-0.3); EOSINOPHILS % (AUTO) 2 % (0-10); HEMATOCRIT 42 % (35-52); HEMOGLOBIN 14.1 G/DL (11.5-16.0); LYMPHOCYTES # (AUTO) 1.8 X 10^3 (1.0-4.0); LYMPHOCYTES % (AUTO) 30 % (12-44); MEAN CORPUSCULAR HEMOGLOBIN 30 PG (25-34); MEAN CORPUSCULAR HGB CONC 34 G/DL (32-36); MEAN CORPUSCULAR VOLUME 88 FL (80-99); MEAN PLATELET VOLUME 10.7 FL (7.4-10.4); MONOCYTES # (AUTO) 0.4 X 10^3 (0.0-1.0); MONOCYTES % (AUTO) 6 % (0-12); NEUTROPHILS # (AUTO) 3.8 X 10^3 (1.8-7.8); NEUTROPHILS % (AUTO) 62 % (42-75); PLATELET COUNT 241 10^3/uL (130-400); RED CELL DISTRIBUTION WIDTH 13.1 % (10.0-14.5); WHITE BLOOD COUNT 6.1 10^3/uL (4.3-11.0)
--- NOTE | 2019-01-22 12:30 | ED GU-Female ---
General Chief Complaint: - Urinary Stated Complaint: WEAKNESS;WARM Nursing Triage Note: PT AMB TO TRIAGE WITH COMPLAINT OF SHAKINESS, INCREASED HEART RATE, FREQUENT URINATION, AND RASH ON CHEEKS. STATES SHE WAS HERE ROUGHLY 6 MONTHS AGO FOR SIMILAR SYMPTOMS, DIAGNOSED WITH [facility]. Nursing Sepsis Screen: No Definite Risk Source: patient Exam Limitations: no limitations History of Present Illness Date Seen by Provider: January 22, 2019 Time Seen by Provider: 12:28 Initial Comments To ER with reports of shakiness and general weakness. This has been going on for about 2-3 days. She's also had a sore throat. She states that this morning while getting ready for work she noticed some sensation of palpitations and flushing. She had some redness to her cheeks but thinks maybe it is related to her makeup because there is no rash anywhere else. She does report urinary frequency, increased hunger and weight loss over the past few weeks. She states that her recently had a heart attack and they've been on a diet so this could account for some of the weight loss. She states she just doesn't feel right. Timing/Duration: week, getting worse Severity/Quality: moderate Location: unknown Activities at Onset: none Prior Genitourinary Problems: none Associated Symptoms: urinary frequency Allergies and Home Medications Allergies Coded Allergies: No Known Drug Allergies (Verified , 01/22/19) Home Medications Aspirin 81 Mg Tablet.dr, 81 MG PO UD, (Reported) Atorvastatin Calcium 10 Mg Tablet, 1 TAB PO UD, (Reported) Hydroxyzine HCl 25 Mg Tablet, 25-50 MG PO Q6H Prescribed by: CHANA WILLAMS on 10/22/16426 Losartan/Hydrochlorothiazide 1 Each Tablet, 1 TAB PO UD, (Reported) Methylprednisolone 4 Mg Tab.ds.pk, 4 MG PO UD Prescribed by: CHANA WILLAMS on 10/22/16426 Mometasone Furoate 15 Gm Cream..g., 0 TP TID Prescribed by: CHANA WILLAMS on 10/22/16426 Omeprazole 40 Mg Capsule.dr, 40 MG PO DAILY Prescribed by: NANDO ROBLERO on 07/25/18412 Sucralfate 1 Gm Tablet, 1 GM PO QIDACHS Prescribed by: NANDO ROBLERO on 07/25/18412 Patient Home Medication List Home Medication List Reviewed: Yes Review of Systems Review of Systems Constitutional: see HPI EENTM: see HPI Respiratory: no symptoms reported Cardiovascular: no symptoms reported Genitourinary: see HPI, frequency Musculoskeletal: no symptoms reported Skin: no symptoms reported Psychiatric/Neurological: No Symptoms Reported Endocrine: No Symptoms Reported Past Lvkxwsi-Qvgrep-Fygpmn Hx Patient Social History Alcohol Use: Denies Use Recreational Drug Use: No Smoking Status: Never a Smoker 2nd Hand Smoke Exposure: No Recent Foreign Travel: No Contact w/Someone Who Travel: No Recent Infectious Disease Expo: No Recent Hopitalizations: No Physical Abuse: No Sexual Abuse: No Mistreated: No Fear: No Immunizations Up To Date Tetanus Booster (TDap): Unknown Seasonal Allergies Seasonal Allergies: No Past Medical History Surgeries: Yes (C-SECTIONS X2) Appendectomy, Section Respiratory: No Cardiac: Yes High Cholesterol, Hypertension Neurological: No 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 0.00oz. 54.868611jf; 0.0 BMI Method:Stated General Appearance: WD/WN, no apparent distress HEENT: PERRL/EOMI, normal ENT inspection; No pharyngeal erythema, No tonsillar exudate Neck: non-tender, full range of motion; No lymphadenopathy (R), No lymphadenopathy (L) Cardiovascular: regular rate, rhythm, no edema Respiratory: normal breath sounds, no respiratory distress, no accessory muscle use Gastrointestinal: normal bowel sounds, non tender, soft Extremities: normal range of motion, non-tender Neurologic/Psychiatric: alert, normal mood/affect, oriented x 3 Skin: normal color, warm/dry Progress/Results/Core Measures Suspected Sepsis Recent Fever Within 48 Hours: No Infection Criteria Present: None New/Unexplained Altered Menta: No Sepsis Screen: No Definite Risk SIRS Temperature:98.2 Pulse: 105 Respiratory Rate: 18 Laboratory Tests 01/22/19 12:15: White Blood Count 6.1 Blood Pressure 176 /72 Mean: 106 Laboratory Tests 01/22/19 12:15: Creatinine 1.03, Platelet Count 241, Total Bilirubin 0.8 Results/Orders Lab Results Laboratory Tests Test 01/22/19 12:15 01/22/19 13:07 Range/Units White Blood Count 6.1 4.3-11.0 10^3/uL Red Blood Count 4.73 4.35-5.85 10^6/uL Hemoglobin 14.1 11.5-16.0 G/DL Hematocrit 42 35-52 % Mean Corpuscular Volume 88 80-99 FL Mean Corpuscular Hemoglobin 30 25-34 PG Mean Corpuscular Hemoglobin Concent 34 32-36 G/DL Red Cell Distribution Width 13.1 10.0-14.5 % Platelet Count 241 130-400 10^3/uL Mean Platelet Volume 10.7 H 7.4-10.4 FL Neutrophils (%) (Auto) 62 42-75 % Lymphocytes (%) (Auto) 30 12-44 % Monocytes (%) (Auto) 6 0-12 % Eosinophils (%) (Auto) 2 0-10 % Basophils (%) (Auto) 0 0-10 % Neutrophils # (Auto) 3.8 1.8-7.8 X 10^3 Lymphocytes # (Auto) 1.8 1.0-4.0 X 10^3 Monocytes # (Auto) 0.4 0.0-1.0 X 10^3 Eosinophils # (Auto) 0.1 0.0-0.3 10^3/uL Basophils # (Auto) 0.0 0.0-0.1 10^3/uL Sodium Level 139 135-145 MMOL/L Potassium Level 3.0 L 3.6-5.0 MMOL/L Chloride Level 102 98-107 MMOL/L Carbon Dioxide Level 23 21-32 MMOL/L Anion Gap 14 5-14 MMOL/L Blood Urea Nitrogen 23 H 7-18 MG/DL Creatinine 1.03 0.60-1.30 MG/DL Estimat Glomerular Filtration Rate 53 BUN/Creatinine Ratio 22 Glucose Level 114 H 70-105 MG/DL Calcium Level 10.0 8.5-10.1 MG/DL Corrected Calcium 8.5-10.1 MG/DL Total Bilirubin 0.8 0.1-1.0 MG/DL Aspartate Amino Transf (AST/SGOT) 24 5-34 U/L Alanine Aminotransferase (ALT/SGPT) 20 0-55 U/L Alkaline Phosphatase 79 40-136 U/L Troponin I < 0.028 <0.028 NG/ML Total Protein 8.1 6.4-8.2 GM/DL Albumin 4.6 H 3.2-4.5 GM/DL Thyroid Stimulating Hormone (TSH) 0.59 0.35-4.94 UIU/ML Free Thyroxine 1.31 0.70-1.48 NG/DL Urine Color YELLOW Urine Clarity CLEAR Urine pH 7 5-9 Urine Specific Ackerman 1.005 L 1.016-1.022 Urine Protein NEGATIVE NEGATIVE Urine Glucose (UA) NEGATIVE NEGATIVE Urine Ketones NEGATIVE NEGATIVE Urine Nitrite NEGATIVE NEGATIVE Urine Bilirubin NEGATIVE NEGATIVE Urine Urobilinogen NORMAL NORMAL MG/DL Urine Leukocyte Esterase NEGATIVE NEGATIVE Urine RBC (Auto) NEGATIVE NEGATIVE Urine RBC RARE /HPF Urine WBC NONE /HPF Urine Squamous Epithelial Cells NONE /HPF Urine Crystals NONE /LPF Urine Bacteria NEGATIVE /HPF Urine Casts NONE /LPF Urine Mucus NEGATIVE /LPF Urine Culture Indicated NO My Orders Orders - ABEL HARDY APRN Cbc With Automated Diff (01/22/19 12:03) Comprehensive Metabolic Panel (01/22/19 12:03) Chest Pa/Lat (2 View) (01/22/19 12:03) Ed Iv/Invasive Line Start (01/22/19 12:03) Thyroid Stimulating Hormone (01/22/19 12:06) Free T4 (Free Thyroxine) (01/22/19 12:06) Ekg Tracing (01/22/19 12:26) Troponin I (01/22/19 12:15) Magnesium (01/22/19 13:30) Potassium Chloride (Tablet) (K Dur Table (01/22/19 13:30) Magnesium Oxide Tablet (Mag Ox Tablet) (01/22/19 13:30) Vital Signs/I&O 01/22/19 01/22/19 11:54 12:10 Temp 98.2 98.2 Pulse 105 105 Resp 18 18 B/P (MAP) 176/72 (106) 176/72 (106) Pulse Ox 100 100 O2 Delivery Room Air Capillary Refill : Less Than 3 Seconds Blood Pressure Mean: 106 Departure Impression Primary Impression: Hypokalemia Disposition: 01 HOME, SELF-CARE Condition: Stable Departure-Patient Inst. Decision time for Depature: 13:37 Referrals: TERRI CALVILLO MD (PCP/Family) Primary Care Physician Patient Instructions: Hypokalemia Add. Discharge Instructions: 1. Return to ER for any concerns 2. Follow-up with your doctor next week 3. All discharge instructions reviewed with patient and/or family. Voiced un derstanding. Scripts Potassium Chloride (K-Tab ER) 20 Meq Tablet.er 40 MEQ PO DAILY, #8 TAB Prov: ABEL HARDY APRN 01/22/19 ABEL HARDY APRN January 22, 2019 12:30
[2019-01-22 12:55] LABS: ALANINE AMINOTRANSFERASE 20 U/L (0-55); ALBUMIN 4.6 GM/DL (3.2-4.5); ALKALINE PHOSPHATASE 79 U/L (40-136); BILIRUBIN,TOTAL 0.8 MG/DL (0.1-1.0); BUN/CREATININE RATIO 22; CARBON DIOXIDE 23 MMOL/L (21-32); CHLORIDE 102 MMOL/L (98-107); CREATININE SERUM 1.03 MG/DL (0.60-1.30); GFR ESTIMATED 53; GLUCOSE 114 MG/DL (70-105); SODIUM 139 MMOL/L (135-145); TOTAL PROTEIN 8.1 GM/DL (6.4-8.2)
[2019-01-22 13:17] LABS: BILIRUBIN,URINE NEGATIVE (NEGATIVE); CLARITY,URINE CLEAR; COLOR,URINE YELLOW; GLUCOSE, URINE (UA) NEGATIVE (NEGATIVE); KETONES,URINE NEGATIVE (NEGATIVE); LEUKOCYTE ESTERASE ,URINE NEGATIVE (NEGATIVE); NITRITE,URINE NEGATIVE (NEGATIVE); PH,URINE 7 (5-9); PROTEIN,URINE NEGATIVE (NEGATIVE); UROBILINOGEN,URINE NORMAL (NORMAL)
[2019-01-22 13:18] LABS: FREE T4 (FREE THYROXINE) 1.31 NG/DL (0.70-1.48)
[2019-01-22 13:23] LABS: BACTERIA,URINE NEGATIVE /HPF; RBC,URINE RARE /HPF
[2019-01-22] MEDS ORDERED: MAGNESIUM OXIDE (MAG-OX)400 MG TAB PO ONE (13:30)
[2019-01-22] MEDS ORDERED: KCL 20 MEQ TAB (K-DUR) PO ONE (13:30)
[2019-01-22] MEDS ORDERED: POTA-53 PO (13:38)
--- NOTE | 2019-01-22 14:18 | Diagnostic Imaging Report ---
INDICATION: Weakness. PA and lateral chest obtained at 01:44 p.m. Heart and mediastinal silhouette are normal in appearance. The lungs are clear. There is no pneumothorax or pleural fluid. IMPRESSION: No acute process in the chest. Dictated by: Dictated on workstation # [id number]
[2019-01-22 14:21] VITALS: BP 126/64
== END 2019-01-22 14:21 | disposition home or self-care (01) ==
LOC: EDUNIT# 11:49 → ER 11:50
DX: E87.6 Hypokalemia (principal); E78.00 Pure hypercholesterolemia, unspecified; I10 Essential (primary) hypertension; Z79.82 Long term (current) use of aspirin; Z82.49 Family history of ischemic heart disease and other diseases of the circulatory system; Z79.52 Long term (current) use of systemic steroids; Z98.890 Other specified postprocedural states; Z90.49 Acquired absence of other specified parts of digestive tract
CPT/HCPCS: 36415; 71046; 80053; 81000; 83735; 84439; 84443; 84484; 85025; 93005

== ENCOUNTER → 2019-07-02 | Outpatient (CLI) | payer MEDICARE, OTHER ==
[~2019-07-02] MED LIST changes: +POTA-53 PO
--- NOTE | 2019-07-02 16:51 | Diagnostic Imaging Report ---
PROCEDURE: US carotid duplex, bilateral. TECHNIQUE: Multiple real-time grayscale images were obtained over the carotid arteries in various projections, bilaterally. Additional spectral analysis and color Doppler duplex images were also obtained. INDICATION: Carotid arterial sclerosis FINDINGS: Comparison is 04/07/2015 Parameters based on the consensus panel Grimm-Scale and Doppler ultrasound criteria published July 2003, Radiology, Volume 229. DOPPLER (peak systolic velocity M/S) Right Left CCA .83 1.06 ICA Proximal 1.07 1.24 ICA Mid 1.24 1.05 ICA Distal 1 .81 RATIO 1.5 1.2 ECA 1.34 1.21 VERT .94 .80 Right carotid circulation: The right common carotid artery is normal in course and caliber. There is moderate calcified plaque formation in the right carotid bifurcation. Based on grayscale images and flow velocity criteria, there are no hemodynamically significant stenoses. Left carotid circulation: The left common carotid artery is normal in course and caliber. There is moderate calcified plaque formation in the left carotid bifurcation. Based on grayscale images and flow velocity criteria, there are no hemodynamically significant stenoses. Flow in the bilateral vertebral arteries is antegrade. IMPRESSION: 1. Mild (<50%) stenosis of the right internal carotid artery. 2. Mild (<50%) stenosis of the left internal carotid artery. Society of Radiologist in Ultrasound Consensus: Normal: ICA PSV is <125 cm/sec and no plaque or intimal thickening is visible sonographically ICA/CCA PSV ratio <2.0 ICA EDV <40 cm/sec Mild (<50% ICA stenosis): ICA PSV is <125 cm/sec and plaque or intimal thickening is visible sonographically ICA/CCA PSV ratio <2.0 ICA EDV <40 cm/sec Moderate (50-69% ICA stenosis) ICA PSV is 125-230 cm/sec and plaque is visible sonographically ICA/CCA PSV ratio of 2.0-4.0 ICA EDV of 40-100 cm/sec Severe (?70% ICA stenosis but less than near occlusion): ICA PSV is >230 cm/sec and visible plaque and luminal narrowing are seen at grimm-scale and color Doppler ultrasound (the higher the Doppler parameters lie above the threshold of 230 cm/sec, the greater the likelihood of severe disease) ICA/CCA PSV ratio >4 ICA EDV >100 cm/sec Near occlusion of the ICA Velocity parameters may not apply, since velocities may be high, low, or undetectable Markedly narrowed lumen at color or power Doppler ultrasound Total occlusion of the ICA: No detectable patent lumen at grimm-scale ultrasound and no flow with spectral, power, and color Doppler ultrasound May be compensatory increased velocity in the contralateral carotid Dictated by: Dictated on workstation # [id number]
== END ==
LOC: RAD 14:50
PROVIDERS: ATTEND Internal Medicine
DX: I65.23 Occlusion and stenosis of bilateral carotid arteries (principal)
CPT/HCPCS: 93880

== ENCOUNTER 2019-11-19 06:01 | Outpatient (CLI) | payer MEDICARE, OTHER ==
[~2019-11-19] VITALS: Ht 152 cm; Wt 54.0 kg
[~2019-11-19 06:01] MED LIST changes: -MOME15CR17 TP; +MOME15CR8 TP; +OMEP40CA27 PO; -OMEP40CA36 PO
[2019-11-19] MEDS ORDERED: ASPI325T32 PO (15:01)
== END 2019-11-19 15:05 | disposition home or self-care (01) ==
LOC: PREOP 06:01
PROVIDERS: ATTEND Surgery
DX: Z01.818 Encounter for other preprocedural examination (principal)

== ENCOUNTER 2020-01-14 10:29 | Day surgery (SDC) | payer MEDICARE, OTHER ==
[2020-01-14] VITALS (9 sets, daily range): BP systolic 21–129; BP diastolic 56–77
[~2020-01-14] VITALS: Ht 157.5 cm; Wt 56.0 kg
[~2020-01-14 10:29] MED LIST changes: +ASPI325T32 PO; +LOSA25TA41 PO
[2020-01-14] MEDS ORDERED: LACTATED RINGERS 1,000 ML IV ONE (10:39)
[2020-01-14] MEDS ORDERED: LACTATED RINGERS 1,000 ML IV STA (10:44)
[2020-01-14] MEDS ORDERED: proPOfol 200 MG/20 ML (DIPRIVAN) VIAL IV ONE (12:19)
[2020-01-14] MEDS ORDERED: MIDAZOLAM 2 MG/2 ML (VERSED) VIAL ONE (12:41)
--- NOTE | 2020-01-14 14:19 | Anesthesia-General Post-Op ---
MAC Patient Condition Mental Status/LOC: Same as Preop Cardiovascular: Satisfactory Nausea/Vomiting: Absent Respiratory: Satisfactory Pain: Controlled Complications: Absent Post Op Complications Complications None Follow Up Care/Instructions Patient Instructions None needed. Anesthesiology Discharge Order Discharge Order Patient is doing well, no complaints, stable vital signs, no apparent adverse anesthesia problems. No complications reported per nursing. RUPERT CAPELLAN CRNA January 14, 2020 14:19
--- NOTE | 2020-01-14 17:42 | Progress Note-Post Operative ---
Post-Operative Progess Note Surgeon (s)/Skiver Counter (s) Surgeon ALVIN DUFFY DO Skiver Counter: na Pre-Operative Diagnosis screening colonoscopy Post-Operative Diagnosis diverticulosis Procedure & Operative Findings Date of Procedure 01/14/20 Procedure Performed/Findings colonoscopy Anesthesia Type per humidifier attendant Estimated Blood Loss Estimated blood loss (mL): none Specimens/Packing Specimens Removed na ALVIN DUFFY DO January 14, 2020 17:42
--- NOTE | 2020-01-14 23:15 | OPERATIVE REPORT ---
DATE OF SERVICE: 01/14/2020 PREOPERATIVE DIAGNOSIS: Screening colonoscopy. POSTOPERATIVE DIAGNOSIS: Diverticulosis. PROCEDURE: Colonoscopy. SURGEON: Alvin Longoria DO ANESTHESIA: Per PAN DUMPER. ESTIMATED BLOOD LOSS: None. COMPLICATIONS: None. INDICATIONS: The patient is a 69-year-old female needing colonoscopy. She understands risks and benefits of procedure and wished to proceed with procedure. Consent was signed in the chart. DESCRIPTION OF PROCEDURE: The patient was taken to the endoscopy suite, placed in left lateral recumbent position. Timeout was performed. Digital rectal exam was performed. There were no palpable polyps, masses or ulcerations. Scope was inserted in the rectum, advanced all the way to cecum with minimal difficulty. Prep was adequate. Scope was then slowly retracted back. There were no polyps, masses or ulcerations within the cecum, ascending, transverse, descending and sigmoid colon. In the sigmoid colon, moderate amount of diverticulosis present. No other pathology noted. Scope once in the rectum was retroflexed noting no other pathology. Scope was returned to its normal position, slowly withdrawn until completely removed. The patient tolerated procedure well without any complications. She was taken to recovery room in stable condition. RECOMMENDATIONS: The patient will need repeat colonoscopy if she has any symptoms. Otherwise, she does not need any further screening. Job ID: [id number] DocumentID: [id number] Dictated Date: 01/14/2020 17:52:46 Emergency Medicine Physician Date: 01/14/2020 23:14:42 Dictated By: ALVIN LONGORIA DO
== END 2020-01-14 14:10 | disposition home or self-care (01) ==
LOC: ENDO 10:29
PROVIDERS: ATTEND Surgery
DX: Z12.11 Encounter for screening for malignant neoplasm of colon (principal); K57.30 Diverticulosis of large intestine without perforation or abscess without bleeding; I10 Essential (primary) hypertension; E78.5 Hyperlipidemia, unspecified; Z90.89 Acquired absence of other organs; Z79.82 Long term (current) use of aspirin; Z79.899 Other long term (current) drug therapy; Z82.49 Family history of ischemic heart disease and other diseases of the circulatory system; Z83.3 Family history of diabetes mellitus

== ENCOUNTER → 2020-04-29 | Outpatient (CLI) | payer MEDICARE, OTHER ==
--- NOTE | 2020-04-29 12:36 | Diagnostic Imaging Report ---
INDICATION: Routine screening. COMPARISON: 11/17/2018 and 11/16/2017. TECHNIQUE: 2D and 3D bilateral screening mammography was performed with CAD. FINDINGS: Scattered fibroglandular densities are identified bilaterally. There are scattered benign calcifications in both breasts. The parenchymal pattern is stable. No mass or malignant appearing microcalcifications are seen. The axillae are unremarkable. IMPRESSION: No mammographic features suspicious for malignancy are identified. ACR BI-RADS Category 2: Benign findings. Result letter will be mailed to the patient. Note: At least 10% of breast cancer is not imaged by mammography. Dictated by: Dictated on workstation # [id number]
== END ==
LOC: RAD 10:24
PROVIDERS: ATTEND Internal Medicine
DX: Z12.31 Encounter for screening mammogram for malignant neoplasm of breast (principal)
CPT/HCPCS: 77063; 77067

== ENCOUNTER → 2021-05-25 | Outpatient (CLI) | payer MEDICARE, OTHER ==
[~2021-05-25] MED LIST changes: -OMEP40CA27 PO; +OMEP40CA6 PO
--- NOTE | 2021-05-25 10:32 | Diagnostic Imaging Report ---
INDICATION: Screening. TECHNIQUE: The current study was also evaluated with a Computer Aided Detection (CAD) system. 3D Tomographic imaging was also performed. COMPARISON: 04/29/2020, 11/17/2018, and 11/16/2017. FINDINGS: The breasts are heterogeneously dense which may obscure small masses. There are a few benign type calcifications. There is, however, no dominant mass, spiculated lesion, or suspicious calcification identified. The skin, nipples, and axillae are unremarkable. IMPRESSION: Benign findings. ACR BI-RADS Category 2: Benign findings. Result letter will be mailed to the patient. Note: At least 10% of breast cancer is not imaged by mammography. Dictated by: Dictated on workstation # [id number]
== END ==
LOC: RAD 08:00
PROVIDERS: ATTEND Internal Medicine
DX: Z12.31 Encounter for screening mammogram for malignant neoplasm of breast (principal)
CPT/HCPCS: 77063; 77067

== ENCOUNTER → 2021-06-15 | Outpatient (CLI) | payer MEDICARE, OTHER ==
--- NOTE | 2021-06-15 14:42 | Diagnostic Imaging Report ---
PROCEDURE: US carotid duplex, bilateral. TECHNIQUE: Multiple real-time grayscale images were obtained over the carotid arteries in various projections, bilaterally. Additional spectral analysis and color Doppler duplex images were also obtained. INDICATION: Known atherosclerotic disease with carotid stenosis. Comparison with previous carotid Doppler study from 07/02/2019. FINDINGS: There is a hard and soft atherosclerotic plaquing scattered within the carotid bulbs and extending into the internal and external carotid arteries bilaterally. Color Doppler imaging shows antegrade flow throughout the carotid and vertebral arteries. Waveforms and peak velocities are normal. Carotid ratios are normal. IMPRESSION: Atherosclerotic plaquing again demonstrated without significant overall change in appearance since 2019. This is again considered mild with less than 50% stenosis within the internal carotid arteries. Parameters based on the consensus panel Grimm-Scale and Doppler ultrasound criteria published July 2003, Radiology, Volume 229. DOPPLER (peak systolic velocity M/S Right Left CCA .72 .92 ICA Proximal 1.16 1.02 ICA Mid .83 .83 ICA Distal .75 .72 RATIO 1.18 .83 ECA .84 .86 VERT .53 .58 Dictated by: Dictated on workstation # [id number]
== END ==
LOC: RAD 12:30
PROVIDERS: ATTEND Nurse Practitioner Family
DX: I65.23 Occlusion and stenosis of bilateral carotid arteries (principal); I25.10 Atherosclerotic heart disease of native coronary artery without angina pectoris
CPT/HCPCS: 93880

== ENCOUNTER 2021-07-25 08:30 | Emergency (ER) | payer MEDICARE, OTHER ==
[~2021-07-25] VITALS: Ht 152 cm; Wt 54.0 kg
[2021-07-25] MEDS ORDERED: LACTATED RINGERS 1,000 ML IV SCH (09:00)
--- NOTE | 2021-07-25 09:01 | ED General ---
General Chief Complaint: Dizziness/Syncope Stated Complaint: DIZZINESS,WEAKNESS Nursing Triage Note: ARRIVED VIA AMB TO ROOM 07 WITH COMPLAINTS OF DIZZINESS ET NAUSEA X2 DAYS. Source of Information: Patient Exam Limitations: No Limitations History of Present Illness Date Seen by Provider: Jul 25, 2021 Time Seen by Provider: 08:33 Initial Comments 71-year-old female with past medical history of hypertension and hyperlipidemia coming in due to general weakness as well as dizziness. She said this started yesterday morning when she woke up. She says she feels lightheaded when she is asked what she means by dizziness. She says sometimes she feels like the room is spinning particularly when she is moving, but this is very intermittent, and is not occurring right now. She says despite this she has been able to walk a round has not been falling over. Denies any trauma such as hitting her head. After this occurred yesterday she is still was able to go to work and complete all of her work. She felt it again this morning and that is why she presented here. She denies any headache, vision changes, voice changes, hearing changes, neck pain, chest pain, shortness of breath, cough, fever, focal weakness or numbness, bowel or bladder issues, or any other concerns. She says she felt similar a couple years ago when she came here and her potassium was low. She does note that she has been losing weight and has not been trying, but has had slightly less of an appetite recently. Allergies and Home Medications Allergies Coded Allergies: No Known Drug Allergies (Unverified , 01/08/20) Patient Home Medication List Home Medication List Reviewed: Yes Aspirin (Aspirin EC) 325 Mg Tablet.dr 325 MG PO DAILY, (Reported) Entered as Reported by: FOUZIA VANEGAS on 11/19/19 1501 Atorvastatin Calcium (Atorvastatin Calcium) 10 Mg Tablet, 1 TAB PO UD, (Reported) Entered as Reported by: XOCHITL MARROQUIN on 10/22/16 0344 Losartan Potassium (Losartan Potassium) 25 Mg Tablet, 25 MG PO DAILY, (Reported) Entered as Reported by: FOUZIA VANEGAS on 01/08/20 1238 Review of Systems Review of Systems Constitutional: No chills, No fever EENTM: No blurred vision Respiratory: No cough, No short of breath Cardiovascular: No chest pain, No edema, No palpitations, No syncope Gastrointestinal: No abdominal pain, No diarrhea, No nausea, No vomiting Genitourinary: No discharge, No dysuria, No frequency, No hematuria, No hesitancy Musculoskeletal: No back pain, No joint pain Skin: no symptoms reported Psychiatric/Neurological: Denies Headache, Denies Numbness, Denies Paresthesia, Denies Seizure Hematologic/Lymphatic: No Symptoms Reported Immunological/Allergic: no symptoms reported All Other Systems Reviewed Negative Unless Noted: Yes Past Cjteary-Wncvph-Eynzzz Hx Patient Social History Tobacco Use?: No Substance use?: No Alcohol Use?: No Immunizations Up To Date Tetanus Booster (TDap): Unknown PED Vaccines UTD: No Second COVID19 Vaccination Gaston: 11/23 COVID19 Vaccine Pin Pusher: JUSTIN Seasonal Allergies Seasonal Allergies: No Past Medical History Surgeries: Yes (C-SECTIONS X2) Appendectomy, Section Respiratory: No Cardiac: Yes High Cholesterol, Hypertension Neurological: No 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 0.00oz. 54.321681bd; 23.00 BMI Method:Stated General Appearance: No Apparent Distress, WD/WN Eyes: Bilateral Eye Normal Inspection, Bilateral Eye PERRL, Bilateral Eye EOMI, Bilateral Eye Other (Normal visual haskins) HEENT: PERRL/EOMI, TMs Normal, Normal ENT Inspection, Pharynx Normal Neck: Full Range of Motion, Normal Inspection, Non Tender, Supple Respiratory: Chest Non Tender, Lungs Clear, Normal Breath Sounds, No Accessory Muscle Use, No Respiratory Distress Cardiovascular: Regular Rate, Rhythm, No Edema, Normal Peripheral Pulses Gastrointestinal: Normal Bowel Sounds, Non Tender, Soft; No Distended, No Guarding Back: Normal Inspection, No CVA Tenderness, No Vertebral Tenderness Extremity: Normal Capillary Refill, Normal Inspection, Normal Range of Motion, Non Tender, No Calf Tenderness, No Pedal Edema Neurologic/Psychiatric: Alert, Oriented x3, No Motor/Sensory Deficits, Normal Mood/Affect, room service runner II-XII Norm as Tested, Other (Normal inqfcw-pc-utqj, normal qrex-iz-mqos, normal tandem gait) Skin: Normal Color, Warm/Dry Lymphatic: No Adenopathy Progress/Results/Core Measures Suspected Sepsis SIRS Temperature: Pulse: 86 Respiratory Rate: 16 Laboratory Tests 07/25/21 08:44: White Blood Count 5.0 Blood Pressure 176 /81 Mean: 112 Laboratory Tests 07/25/21 08:44: Creatinine 0.75, INR Comment 1.0, Platelet Count 245, Total Bilirubin 0.8 Results/Orders Lab Results Laboratory Tests Test 07/25/21 08:44 07/25/21 09:50 Range/Units White Blood Count 5.0 4.3-11.0 10^3/uL Red Blood Count 4.53 3.80-5.11 10^6/uL Hemoglobin 13.7 11.5-16.0 g/dL Hematocrit 40 35-52 % Mean Corpuscular Volume 89 80-99 fL Mean Corpuscular Hemoglobin 30 25-34 pg Mean Corpuscular Hemoglobin Concent 34 32-36 g/dL Red Cell Distribution Width 12.5 10.0-14.5 % Platelet Count 245 130-400 10^3/uL Mean Platelet Volume 10.6 9.0-12.2 fL Immature Granulocyte % (Auto) 0 % Neutrophils (%) (Auto) 61 42-75 % Lymphocytes (%) (Auto) 27 12-44 % Monocytes (%) (Auto) 8 0-12 % Eosinophils (%) (Auto) 3 0-10 % Basophils (%) (Auto) 0 0-10 % Neutrophils # (Auto) 3.1 1.8-7.8 10^3/uL Lymphocytes # (Auto) 1.4 1.0-4.0 10^3/uL Monocytes # (Auto) 0.4 0.0-1.0 10^3/uL Eosinophils # (Auto) 0.2 0.0-0.3 10^3/uL Basophils # (Auto) 0.0 0.0-0.1 10^3/uL Immature Granulocyte # (Auto) 0.0 0.0-0.1 10^3/uL Prothrombin Time 13.2 12.2-14.7 SEC INR Comment 1.0 0.8-1.4 Activated Partial Thromboplast Time 33 24-35 SEC Sodium Level 137 135-145 MMOL/L Potassium Level 3.4 L 3.6-5.0 MMOL/L Chloride Level 102 98-107 MMOL/L Carbon Dioxide Level 25 21-32 MMOL/L Anion Gap 10 5-14 MMOL/L Blood Urea Nitrogen 25 H 7-18 MG/DL Creatinine 0.75 0.60-1.30 MG/DL Estimat Glomerular Filtration Rate 76 BUN/Creatinine Ratio 33 Glucose Level 102 70-105 MG/DL Calcium Level 9.5 8.5-10.1 MG/DL Corrected Calcium 9.3 8.5-10.1 MG/DL Magnesium Level 2.2 1.6-2.4 MG/DL Total Bilirubin 0.8 0.1-1.0 MG/DL Aspartate Amino Transf (AST/SGOT) 22 5-34 U/L Alanine Aminotransferase (ALT/SGPT) 12 0-55 U/L Alkaline Phosphatase 76 40-136 U/L Troponin I < 0.028 <0.028 NG/ML B-Type Natriuretic Peptide 31.5 <100.0 PG/ML Total Protein 8.2 6.4-8.2 GM/DL Albumin 4.3 3.2-4.5 GM/DL Urine Color YELLOW Urine Clarity CLEAR Urine pH 6.0 5-9 Urine Specific [place] >=1.030 1.016-1.022 Urine Protein NEGATIVE NEGATIVE Urine Glucose (UA) NEGATIVE NEGATIVE Urine Ketones NEGATIVE NEGATIVE Urine Nitrite NEGATIVE NEGATIVE Urine Bilirubin NEGATIVE NEGATIVE Urine Urobilinogen 0.2 < = 1.0 MG/DL Urine Leukocyte Esterase TRACE H NEGATIVE Urine RBC (Auto) TRACE-I H NEGATIVE Urine RBC 0-2 /HPF Urine WBC 2-5 /HPF Urine Squamous Epithelial Cells 0-2 /HPF Urine Crystals NONE /LPF Urine Bacteria NEGATIVE /HPF Urine Casts NONE /LPF Urine Mucus NEGATIVE /LPF Urine Culture Indicated NO My Orders Orders - WESLEY YOUNGBLOOD MD Ct Head Wo (07/25/21 08:53) Ed Iv/Invasive Line Start (07/25/21 08:53) Chest Pa/Lat (2 View) (07/25/21 08:53) BNP (07/25/21 08:53) Cbc With Automated Diff (07/25/21 08:53) Comprehensive Metabolic Panel (07/25/21 08:53) Magnesium (07/25/21 08:53) Protime With Inr (07/25/21 08:53) Partial Thromboplastin Time (07/25/21 08:53) Troponin I (07/25/21 08:53) Ua Culture If Indicated (07/25/21 08:53) Ekg Tracing (07/25/21 08:53) Lactated Ringers (Lr 1000 Ml Iv Solution (07/25/21 09:00) Vital Signs/I&O 07/25/21 08:37 Temp 36.3 Pulse 86 Resp 16 B/P (MAP) 176/81 (112) Pulse Ox 98 O2 Delivery Room Air Capillary Refill : Less Than 3 Seconds Blood Pressure Mean: 112 Progress Note : Progress Note 71-year-old female with above history coming in due to general weakness and feeling lightheaded at times but other times feeling like the room is spinning. ABCs were intact and vitals were stable on presentation. Her neuro exam is completely normal, and specifically she has no cerebellar signs on exam including normal tandem gait and she can stand with her eyes closed without falling to one side. The vertigo that she is describing does sound very positional and does not sound like a central neurologic cause clinical history and exam. She has been losing weight from decreased p.o. intake, so an IV was placed and she was given a bolus of IV fluids as well as basic labs and cardiac markers drawn. Will obtain CT head as well and chest x-ray to see if we can find any obvious causes for her general weakness. Labs significant for a slightly low potassium at 3.4, normal kidney function and electrolytes otherwise, negative troponin, normal BNP, normal hemoglobin for age and urine without evidence of infection. CT head negative for any acute abnormalities including no bleeding on my interpretation. Chest x-ray my interpretation without any obvious focal pneumonia, normal cardiac silhouette. She continues to ambulate without difficulty, is tolerating p.o., and overall I believe is stable for discharge with outpatient follow-up. She was sent home with strict return precautions ECG Initial ECG Impression Date: Jul 25, 2021 Initial ECG Impression Time: 09:25 Initial ECG Rate: 81 Initial ECG Rhythm: Normal Sinus Comment Narrow QRS, normal axis, no significant ST changes or T wave abnormalities Diagnostic Imaging Diagonstic Imaging: Xray (chest), CT (head) Comments [facility] [place], [place] NAME: SHAMAR VINSON [facility] REC#: [id number] PT STATUS: REG ER : 1950 PHYSICIAN: WESLEY YOUNGBLOOD MD ADMIT DATE: 07/25/21/ER Signed Date of Exam:07/25/21 CT HEAD WO Clinical Indication: Patient with dizziness and weakness. Exam: Axial CT scan of the brain without IV contrast with coronal reformatted images. Auto Exposure Controls were utilized during the CT exam to meet ALARA standards for radiation dose reduction. Comparison: Head CT without contrast dated 09/28/2012. Findings: There is no evidence of acute cerebral infarct, intracranial hemorrhage, or gross mass effect. The brain parenchymal volume appears appropriate for patient's age. Again seen, small focal and patchy areas of low-attenuation white matter changes involving both cerebral hemispheres, likely representing chronic small vessel ischemic disease. These findings have minimally progressed in the interim. There is normal stiles-white matter distinction. There is no significant midline shift or herniation. There is no evidence of hydrocephalus. The basal cisterns are unremarkable. The skull, extracranial soft tissue, and orbits are unremarkable. The paranasal sinuses are unremarkable. Temporal bones show no significant abnormality. Impression: Unremarkable CT scan of the brain for age. Dictated by: Dictated on workstation # [id number] Dict: 07/25/21918 Trans: 07/25/21927 [facility] [id number] Interpreted by: OLYA HINKLE MD Electronically signed by: OLYA HINKLE MD 07/25/21927 [facility] [place], [place] NAME: SHAMAR VINSON [facility] REC#: [id number] PT STATUS: REG ER : 1950 PHYSICIAN: WESLEY YOUNGBLOOD MD ADMIT DATE: 07/25/21/ER Draft Date of Exam:07/25/21 CHEST PA/LAT (2 VIEW) EXAM: CHEST PA/LAT (2 VIEW) INDICATION: Weakness. COMPARISON: Chest radiograph 01/22/2019. FINDINGS: Normal heart size and central pulmonary vascularity. Calcified aorta. No focal pulmonary opacity. No pleural effusion or pneumothorax. No acute osseous findings. No significant change IMPRESSION: No acute cardiopulmonary findings. Dictated on workstation # [id number] Dict: 07/25/2128 Trans: 07/25/2145 [facility] [id number] Interpreted by: DINORA LOPEZ MD Electronically signed by: Departure Impression Primary Impression: Weakness Disposition: 01 HOME, SELF-CARE Condition: Stable Departure-Patient Inst. Decision time for Depature: 10:09 Referrals: TERRI CALVILLO MD (PCP/Family) Primary Care Physician Patient Instructions: Weakness ED, Vertigo (a Type of Dizziness) (DC) Add. Discharge Instructions: Feeling dizzy and generally weak. The potassium was just slightly low, but not enough that I would want you to take an actual potassium supplement. Instead just eat potassium rich foods for the next couple of days including bananas, avocado, spinach, potatoes, sweet potatoes, oranges, and many other options if you look them up online. Please follow-up with Dr. Calvillo within the next couple days especially if you continue to feel this way. Be sure to drink plenty of fluids. If you develop weakness on one side of your body, numbness on 1 side of your body, the room begins to spin constantly and never stops, or you have any other concerns then please come back to the ER. Work/School Note: Work Release Form Date Seen in the Emergency Department: Jul 25, 2021 Return to Work: Jul 26, 2021 Restrictions: No Restrictions WESLEY YOUNGBLOOD MD Jul 25, 2021 09:01
[2021-07-25 09:02] LABS: BASOPHILS % (AUTO) 0 % (0-10); EOSINOPHILS # (AUTO) 0.2 10^3/uL (0.0-0.3); EOSINOPHILS % (AUTO) 3 % (0-10); HEMATOCRIT 40 % (35-52); HEMOGLOBIN 13.7 g/dL (11.5-16.0); LYMPHOCYTES # (AUTO) 1.4 10^3/uL (1.0-4.0); LYMPHOCYTES % (AUTO) 27 % (12-44); MEAN CORPUSCULAR HEMOGLOBIN 30 pg (25-34); MEAN CORPUSCULAR HGB CONC 34 g/dL (32-36); MEAN CORPUSCULAR VOLUME 89 fL (80-99); MEAN PLATELET VOLUME 10.6 fL (9.0-12.2); MONOCYTES # (AUTO) 0.4 10^3/uL (0.0-1.0); MONOCYTES % (AUTO) 8 % (0-12); NEUTROPHILS # (AUTO) 3.1 10^3/uL (1.8-7.8); NEUTROPHILS % (AUTO) 61 % (42-75); PLATELET COUNT 245 10^3/uL (130-400)
[2021-07-25 09:05] LABS: ALBUMIN 4.3 GM/DL (3.2-4.5); CHLORIDE 102 MMOL/L (98-107); POTASSIUM 3.4 MMOL/L (3.6-5.0); SODIUM 137 MMOL/L (135-145)
[2021-07-25 09:06] LABS: CALCIUM 9.5 MG/DL (8.5-10.1)
[2021-07-25 09:07] LABS: GLUCOSE 102 MG/DL (70-105)
[2021-07-25 09:08] LABS: PROTHROMBIN TIME PATIENT 13.2 SEC (12.2-14.7); TOTAL PROTEIN 8.2 GM/DL (6.4-8.2)
[2021-07-25 09:09] LABS: BILIRUBIN,TOTAL 0.8 MG/DL (0.1-1.0); CARBON DIOXIDE 25 MMOL/L (21-32)
[2021-07-25 09:11] LABS: ALKALINE PHOSPHATASE 76 U/L (40-136); CREATININE SERUM 0.75 MG/DL (0.60-1.30); GFR ESTIMATED 76
[2021-07-25 09:12] LABS: BUN/CREATININE RATIO 33
[2021-07-25 09:14] LABS: ALANINE AMINOTRANSFERASE 12 U/L (0-55); MAGNESIUM 2.2 MG/DL (1.6-2.4)
--- NOTE | 2021-07-25 09:24 | Diagnostic Imaging Report ---
Clinical Indication: Patient with dizziness and weakness. Exam: Axial CT scan of the brain without IV contrast with coronal reformatted images. Auto Exposure Controls were utilized during the CT exam to meet ALARA standards for radiation dose reduction. Comparison: Head CT without contrast dated 09/28/2012. Findings: There is no evidence of acute cerebral infarct, intracranial hemorrhage, or gross mass effect. The brain parenchymal volume appears appropriate for patient's age. Again seen, small focal and patchy areas of low-attenuation white matter changes involving both cerebral hemispheres, likely representing chronic small vessel ischemic disease. These findings have minimally progressed in the interim. There is normal stiles-white matter distinction. There is no significant midline shift or herniation. There is no evidence of hydrocephalus. The basal cisterns are unremarkable. The skull, extracranial soft tissue, and orbits are unremarkable. The paranasal sinuses are unremarkable. Temporal bones show no significant abnormality. Impression: Unremarkable CT scan of the brain for age. Dictated by: Dictated on workstation # [id number]
--- NOTE | 2021-07-25 09:46 | Diagnostic Imaging Report ---
EXAM: CHEST PA/LAT (2 VIEW) INDICATION: Weakness. COMPARISON: Chest radiograph 01/22/2019. FINDINGS: Normal heart size and central pulmonary vascularity. Calcified aorta. No focal pulmonary opacity. No pleural effusion or pneumothorax. No acute osseous findings. No significant change IMPRESSION: No acute cardiopulmonary findings. Dictated by: Dictated on workstation # [id number]
[2021-07-25 10:00] LABS: BILIRUBIN,URINE NEGATIVE (NEGATIVE); CLARITY,URINE CLEAR; COLOR,URINE YELLOW; GLUCOSE, URINE (UA) NEGATIVE (NEGATIVE); KETONES,URINE NEGATIVE (NEGATIVE); LEUKOCYTE ESTERASE ,URINE TRACE (NEGATIVE); NITRITE,URINE NEGATIVE (NEGATIVE); PROTEIN,URINE NEGATIVE (NEGATIVE)
[2021-07-25 10:07] LABS: BACTERIA,URINE NEGATIVE /HPF; RBC,URINE 0-2 /HPF; SQUAMOUS EPITHELIAL CELL,UR 0-2 /HPF
[2021-07-25 10:33] VITALS: BP 160/73
== END 2021-07-25 10:33 | disposition home or self-care (01) ==
LOC: EDUNIT# 08:30 → ER 08:32
DX: R53.1 Weakness (principal); I10 Essential (primary) hypertension; E78.00 Pure hypercholesterolemia, unspecified; Z20.822 Contact with and (suspected) exposure to COVID-19; Z79.899 Other long term (current) drug therapy; Z79.82 Long term (current) use of aspirin
CPT/HCPCS: 36415; 70450; 71046; 80053; 81000; 83735; 83880; 84484; 85025; 85610; 85730; 87636; 93005

== ENCOUNTER → 2022-07-05 | Outpatient (CLI) | payer MEDICARE, OTHER ==
--- NOTE | 2022-07-05 12:50 | Diagnostic Imaging Report ---
INDICATION: Routine screening. COMPARISON: 05/25/2021 and 04/29/2020. TECHNIQUE: 2D and 3D bilateral screening mammography was performed with CAD. FINDINGS: Scattered fibroglandular densities are identified bilaterally. There are scattered benign calcifications. No spiculated mass or malignant-appearing microcalcifications are seen. The axillae are unremarkable. IMPRESSION: No mammographic features suspicious for malignancy are identified. ACR BI-RADS Category 2: Benign findings. Result letter will be mailed to the patient. Note: At least 10% of breast cancer is not imaged by mammography. Dictated by: Dictated on workstation # [id number]
== END ==
LOC: RAD 10:47
PROVIDERS: ATTEND Physician Assistant
DX: Z12.31 Encounter for screening mammogram for malignant neoplasm of breast (principal)
CPT/HCPCS: 77063; 77067

== ENCOUNTER → 2023-07-08 | Outpatient (CLI) | payer MEDICARE, OTHER ==
[~2023-07-08] MED LIST changes: +ACYC30OI TP; +NAPR500T8 PO; +TRAM50TA3 PO; +VALA10004 PO
--- NOTE | 2023-07-08 12:45 | Diagnostic Imaging Report ---
PROCEDURE: US carotid duplex, bilateral. TECHNIQUE: Multiple real-time grayscale images were obtained over the carotid arteries in various projections, bilaterally. Additional spectral analysis and color Doppler duplex images were also obtained. INDICATION: Hypertension and carotid artery disease. COMPARISON: Correlation is made with prior carotid Doppler from 06/15/2021. FINDINGS: There is a moderate amount of hard and soft plaque involving the carotid bulbs and proximal internal and external carotid arteries bilaterally. However, velocities remain within normal limits bilaterally. No significant velocity elevation or stenosis is identified. Both vertebral arteries show antegrade flow. IMPRESSION: Moderate bilateral carotid plaque. There is no evidence of a hemodynamically significant stenosis. Parameters based on the consensus panel Grimm-Scale and Doppler ultrasound criteria published July 2003, Radiology, Volume 229. DOPPLER (peak systolic velocity M/S Right Left CCA .82 .75 ICA Proximal 1.3 .86 ICA Mid .76 1.2 ICA Distal 1.0 1.1 RATIO 1.79 PROX 1.49 MID ECA 1.5 .95 VERT .45 .78 Dictated by: Dictated on workstation # [id number]
--- NOTE | 2023-07-08 13:08 | Diagnostic Imaging Report ---
INDICATION: Routine screening. Comparison is made with prior mammogram from 07/05/2022 and 05/25/2021. 2-D and 3-D bilateral screening mammography was performed with CAD. Both breasts are heterogeneously dense, limiting the sensitivity of mammography. The overall parenchymal pattern is stable. No mass or malignant-appearing microcalcifications are seen. There are benign calcifications bilaterally. Axillae are unremarkable. IMPRESSION: No mammographic features suspicious for malignancy are identified. ACR BI-RADS Category 2: Benign findings. Result letter will be mailed to the patient. Note: At least 10% of breast cancer is not imaged by mammography. BI-RADS Category 2 Dictated by: Dictated on workstation # [id number]
== END ==
LOC: RAD 10:00
PROVIDERS: ATTEND Internal Medicine
DX: Z12.31 Encounter for screening mammogram for malignant neoplasm of breast (principal); I65.23 Occlusion and stenosis of bilateral carotid arteries; I10 Essential (primary) hypertension; E78.2 Mixed hyperlipidemia
CPT/HCPCS: 77063; 77067; 93880